=== PATIENT | female | born 1955 | race Hispanic/Latino ===

== ENCOUNTER 2017-10-24 13:24 | Emergency (ER) | payer BC, MEDICAID ==
[2017-10-24 13:25] VITALS: BMI 37.1
[2017-10-24] MEDS ORDERED: Sodium Chloride 0.9% 1,000 ML IV ONE (14:24)
--- NOTE | 2017-10-24 15:40 | C.PDOC ---
History Of Present Illness 62yo female, with PMH kidney stones, frequent uti, and ovarian cyst presents to the ED with complaints of left sided groin pain since yesterday. She describes the pain as a dull, throbbing pain. Pt notes she was shopping when it first started. Notes that the pain radiates to her back and it is worse with movement. She was evaluated for back pain last week and was diagnosed with kidney stones. PT notes this feels similar to when she was diagnosed with the ovarian cyst. She denies any fever, chills, trauma or injury, dysuria, hematuria , vaginal bleeding , vaginal discharge, or abdominal pain. Time Seen by Provider: 10/24/17 13:54 Chief Complaint (Nursing): Female Genitourinary History Per: Patient History/Exam Limitations: no limitations Onset/Duration Of Symptoms: Days Current Symptoms Are (Timing): Still Present Past Medical History Reviewed: Historical Data, Nursing Documentation, Vital Signs Vital Signs: Last Vital Signs Temp 98.1 F 10/24/17 17:39 Pulse 62 10/24/17 17:39 Resp 18 10/24/17 17:39 BP 153/85 H 10/24/17 17:39 Pulse Ox 99 10/25/17 08:27 - Medical History PMH: Arthritis, Fibromyalgia, GERD, Kidney Stones, Malignancy, Chronic Kidney Disease Surgical History: Cholecystectomy Family History: States: No Known Family Hx, Unknown Family Hx - Social History Hx Alcohol Use: No Hx Substance Use: No Review Of Systems Except As Marked, All Systems Reviewed And Found Negative. Constitutional: Negative for: Fever, Chills Genitourinary: Positive for: Other (left groin pain). Negative for: Dysuria, Frequency, Hematuria, Vaginal Discharge, Vaginal Bleeding Musculoskeletal: Negative for: Back Pain Physical Exam - Physical Exam Appears: Non-toxic, No Acute Distress Skin: Warm, Dry Head: Atraumatic, Normacephalic Eye(s): bilateral: Normal Inspection, EOMI Nose: Normal Oral Mucosa: Moist Neck: Normal ROM, Supple Chest: Symmetrical Cardiovascular: Rhythm Regular Respiratory: Normal Breath Sounds Gastrointestinal/Abdominal: Soft, Tenderness (left inguinal tenderness, mild suprapubic tenderness, no lymphadenopathy) Back: Normal Inspection, No CVA Tenderness, No Vertebral Tenderness, Paraspinal Tenderness (left paralumbar tenderness) Extremity: Normal ROM Neurological/Psych: Oriented x3 ED Course And Treatment - Laboratory Results Result Diagrams: 10/24/17 15:34 10/24/17 15:34 O2 Sat by Pulse Oximetry: 99 (RA) Pulse Ox Interpretation: Normal - CT Scan/US US Pelvis Other Rad Studies (CT/US): Radiology Report Reviewed, U/S Performed By Me CT/US Interpretation: FINDINGS: UTERUS: Measures 7.0 x 3.0 x 4.3 cm. Normal in size and appearance. No fibroid or other mass lesion seen. ENDOMETRIUM: Measures 3.0 mm in diameter. Unremarkable. CERVIX: No cervical abnormality identified. RIGHT OVARY: Measures 1.8 x 1.4 x 1.7 cm. No solid mass. Normal flow. LEFT OVARY: Measures 2.0 x 1.0 x 1.7 cm. No solid mass. Normal flow. FREE FLUID: No significant free fluid noted. OTHER FINDINGS: None. IMPRESSION: Unremarkable pelvic ultrasound. Progress Note: Labs and US Pelvis ordered. Toradol and IV Fluids given. Previous work up reviewed from last week including abd CT showing no nephrolithiasis or any other acute abnormality. On reassessment, patient is resting comfortably, and is in no acute distress. She reports improvement in pain after the Toradol and requests RX for it. Abdomen soft, nontender. TOlerating PO. Afebrile. Patient was instructed to follow up with physician/ clinic in 1-2 days for further evaluation Disposition - Disposition Referrals: Yasmeen Allen MD [Staff Provider] - Disposition: HOME/ ROUTINE Disposition Time: 17:19 Condition: STABLE Additional Instructions: Follow up with your primary medical doctor or clinic in 2-5 days for further evaluation. Take medications as prescribed. Return to the emergency department at any time if symptoms persist or worsen. 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 - Scribe Statement The provider has reviewed the documentation as recorded by the Scribe (Cuca Hager) Provider Attestation: All medical record entries made by the Scribe were at my direction and personally dictated by me. I have reviewed the chart and agree that the record accurately reflects my personal performance of the history, physical exam, medical decision making, and the department course for this patient. I have also personally directed, reviewed, and agree with the discharge instructions and disposition.
[2017-10-24 15:41] LABS: BASO % 0.8 % (0.0-2.0); EOS # 0.1 K/uL (0.0-0.7); EOS % 1.5 % (0.0-4.0); HEMOGLOBIN 12.1 g/dL (11.0-16.0); LYMPH # 1.7 K/uL (1.0-4.3); MEAN CELL VOLUME 85.9 fL (81.0-99.0); MEAN CORPUSCULAR HEMOGLOBIN 29.6 pg (27.0-31.0); MEAN CORPUSCULAR HGB CONC 34.5 g/dL (33.0-37.0); MEAN PLATELET VOLUME 7.9 fL (7.2-11.7); MONO # 0.4 K/uL (0.0-0.8); MONO % 6.8 % (0.0-10.0); NEUT # 3.4 K/uL (1.8-7.0); NEUT % 60.9 % (50.0-75.0); RBC 4.08 Mil/uL (3.80-5.20); RED CELL DISTRIBUTION WIDTH 13.2 % (11.5-14.5); WHITE BLOOD COUNT 5.6 K/uL (4.8-10.8)
[2017-10-24 15:49] LABS: SQUAMOUS EPITHIAL 4 /hpf (0-5); URINE BILIRUBIN NEGATIVE (NEGATIVE); URINE BLOOD 2+ (NEGATIVE); URINE CLARITY Hazy (Clear); URINE COLOR Yellow (YELLOW); URINE GLUCOSE (UA) NORMAL (Normal); URINE LEUKOCYTE ESTERASE NEG Leu/uL (Negative); URINE PROTEIN NEGATIVE (NEGATIVE); URINE UROBILINOGEN NORMAL mg/dL (0.2-1.0)
[2017-10-24 15:54] LABS: ALB/GLOB RATIO 1.1 (1.0-2.1); ALBUMIN 3.8 g/dL (3.5-5.0); AST/SGOT 23 U/L (14-36); BLOOD UREA NITROGEN 15 mg/dL (7-17); GFR AFRICAN-AMERICAN > 60; GFR NON-AFRICAN AMERICAN > 60
[2017-10-24 15:58] LABS: ALT/SGPT < 6 U/L (9-52)
[2017-10-24] MEDS ORDERED: Sodium Chloride 0.9% 1,000 ML ONE (16:29)
--- NOTE | 2017-10-24 17:18 | US ---
HISTORY: Pain COMPARISON: None available. TECHNIQUE: Transabdominal/transvaginal sonographic evaluation of pelvis performed. FINDINGS: UTERUS: Measures 7.0 x 3.0 x 4.3 cm. Normal in size and appearance. No fibroid or other mass lesion seen. ENDOMETRIUM: Measures 3.0 mm in diameter. Unremarkable. CERVIX: No cervical abnormality identified. RIGHT OVARY: Measures 1.8 x 1.4 x 1.7 cm. No solid mass. Normal flow. LEFT OVARY: Measures 2.0 x 1.0 x 1.7 cm. No solid mass. Normal flow. FREE FLUID: No significant free fluid noted. OTHER FINDINGS: None. IMPRESSION: Unremarkable pelvic ultrasound.
[2017-10-24 17:48] VITALS: BP 153/85; PULSE 62; RESP 18; TEMP 98.1
[2017-10-24 17:52] VITALS: O2SAT 99
== END 2017-10-24 17:40 | disposition home or self-care (01) ==
LOC: C.ER 13:24
DX: S39.011A Strain of muscle, fascia and tendon of abdomen, initial encounter (principal); X58.XXXA Exposure to other specified factors, initial encounter
CPT/HCPCS: 76830; 80053; 81001; 85025; 87086; 87181; 96360; 96372; 99284; J1885; J7030